=== PATIENT | female | born 1985 ===

== ENCOUNTER 2022-05-03 10:20 | Outpatient (CLI) | payer OTHER, SELFPAY ==
[2022-05-03 12:09] LABS: Cholesterol* 165 mg/dL (90-199)
[2022-05-03 12:10] LABS: Glucose* 85 mg/dL (60-115); HDL Cholesterol* 75 mg/dL (>=50); LDL Cholesterol Calculated 75 mg/dL (<100); Triglycerides* 76 mg/dL (40-149)
== END 2022-05-03 10:21 | disposition home or self-care (01) ==
LOC: NFLDREF 10:20
PROVIDERS: Visit Provider Physician Assistant
DX: R63.6 Underweight (principal); Z13.6 Encounter for screening for cardiovascular disorders; Z13.1 Encounter for screening for diabetes mellitus
CPT/HCPCS: 80061; 82947; 84443

== ENCOUNTER 2022-11-04 08:42 | Outpatient (CLI) | payer OTHER, SELFPAY ==
[2022-11-04 12:37] LABS: Chlamydia DNA Amplified* NOT DETECTED (No Detected); GC DNA Amplified* NOT DETECTED (No Detected)
== END 2022-11-04 08:43 | disposition home or self-care (01) ==
PROVIDERS: Visit Provider Physician Assistant
DX: Z11.3 Encounter for screening for infections with a predominantly sexual mode of transmission (principal)
CPT/HCPCS: 86592; 86703; 86803; 87340; 87491; 87591

== ENCOUNTER 2023-10-04 14:53 | Outpatient (CLI) | payer OTHER, SELFPAY | END 2023-10-04 14:54 | disposition home or self-care (01) | PROVIDERS: PCP Family Medicine; Visit Provider Physician Assistant | DX: Z11.3 Encounter for screening for infections with a predominantly sexual mode of transmission (principal) | CPT/HCPCS: 86592; 86703; 86803; 87340; 87491; 87591 ==

== ENCOUNTER 2024-05-07 16:08 | Outpatient (CLI) | payer BC, SELFPAY ==
[2024-05-07 19:55] LABS: Chlamydia DNA Amplified* NOT DETECTED (No Detected); GC DNA Amplified* NOT DETECTED (No Detected)
[2024-05-09 18:58] LABS: HPV Source Cervical; HPV, High Risk by TMA Detected
[2024-05-10 15:50] LABS: HPV Genotype 16 by TMA Not Detected; HPV Genotype 18/45 by TMA Not Detected; HPVG Source Cervical
== END 2024-05-07 16:09 | disposition home or self-care (01) ==
PROVIDERS: PCP Family Medicine; Visit Provider Physician Assistant
DX: Z12.4 Encounter for screening for malignant neoplasm of cervix (principal); Z11.3 Encounter for screening for infections with a predominantly sexual mode of transmission
CPT/HCPCS: 87491; 87591; 87624; 87625; 88141; 88142